=== PATIENT | male | born 1955 | race Hispanic/Latino ===

== ENCOUNTER → 2022-02-24 | Day surgery (SDC) | payer OTHER ==
[~2022-02-24] MED LIST: CRESTOR10 MG PO; LISINOPRIL5 MG PO; METFORMIN HCL500 MG PO; PROPOFOL IV EMULSION 10 MG/ML 20 ML VIAL ONE; REVATIO20 MG PO
[2022-02-24 18:15] VITALS: BP 138/80
== END | disposition home or self-care (01) ==
LOC: OR 12:43
PROVIDERS: ATTEND Internal Medicine Gastroenterology
DX: Z12.11 Encounter for screening for malignant neoplasm of colon (principal); D12.2 Benign neoplasm of ascending colon; D12.3 Benign neoplasm of transverse colon; D12.4 Benign neoplasm of descending colon; D12.8 Benign neoplasm of rectum; K52.9 Noninfective gastroenteritis and colitis, unspecified; K57.30 Diverticulosis of large intestine without perforation or abscess without bleeding; K64.8 Other hemorrhoids; I10 Essential (primary) hypertension; E78.5 Hyperlipidemia, unspecified; E11.9 Type 2 diabetes mellitus without complications; Z01.810 Encounter for preprocedural cardiovascular examination; Z79.84 Long term (current) use of oral hypoglycemic drugs; Z79.899 Other long term (current) drug therapy
CPT/HCPCS: 36415; 45380; 45381; 45384; 45385; 82948; 93005; J2704; 45378